=== PATIENT | female | born 1975 | race Two or more races ===

== ENCOUNTER 2022-03-10 23:44 | Emergency (ER) | payer SELFPAY ==
[~2022-03-10] VITALS: Ht 152.4 cm; Wt 63.5 kg
[2022-03-10 23:44] VITALS: BP 137/79
== END 2022-03-11 03:11 | disposition left against medical advice (07) ==
LOC: ER 23:44
DX: J02.9 Acute pharyngitis, unspecified (principal); Z53.21 Procedure and treatment not carried out due to patient leaving prior to being seen by health care provider

== ENCOUNTER 2022-08-10 14:04 | Emergency (ER) | payer MEDICAID, OTHER ==
[~2022-08-10] VITALS: Ht 149.9 cm; Wt 48.0 kg
[2022-08-10 15:09] VITALS: BP 113/65
[2022-08-10] MEDS ORDERED: NAPR500T31 PO (15:50)
== END 2022-08-10 15:58 | disposition home or self-care (01) ==
LOC: ER 14:04 → EDBD 14:04 → ER 15:58
DX: S16.1XXA Strain of muscle, fascia and tendon at neck level, initial encounter (principal); V43.52XA Car driver injured in collision with other type car in traffic accident, initial encounter; Y93.89 Activity, other specified; Y92.89 Other specified places as the place of occurrence of the external cause; Y99.8 Other external cause status
CPT/HCPCS: 72040

== ENCOUNTER 2023-07-17 18:21 | Emergency (ER) | payer MEDICAID, OTHER ==
[~2023-07-17] VITALS: Ht 149.9 cm; Wt 53.9 kg
[~2023-07-17 18:21] MED LIST: NAPR-746 PO
[2023-07-17] MEDS ORDERED: IBUP-1456 PO ×3 (23:24→23:27)
[2023-07-17] MEDS ORDERED: AMOX875T4 PO ×3 (23:24→23:27)
[2023-07-17] MEDS ORDERED: BENZOCAINE (DENTAL) 20 % SPRAY 60ML MT ONE (23:30)
[2023-07-17] MEDS ORDERED: cefTRIAXone SOD 1,000 MG VL IM ONE (23:30)
[2023-07-17] MEDS ORDERED: KETOROLAC TROMETH 60MG/2ML VIAL IM ONE (23:30)
[2023-07-17 23:40] VITALS: BP 130/70; PULSE 75; RESP 18; TEMP 97.8; O2SAT 98
== END 2023-07-17 23:46 | disposition home or self-care (01) ==
LOC: ER 18:21
DX: S02.5XXA Fracture of tooth (traumatic), initial encounter for closed fracture (principal); Z79.899 Other long term (current) drug therapy; X58.XXXA Exposure to other specified factors, initial encounter; Y93.89 Activity, other specified; Y92.89 Other specified places as the place of occurrence of the external cause; Y99.8 Other external cause status
CPT/HCPCS: 81025; 96372; 99284; J0696; J1885

== ENCOUNTER 2023-09-23 09:12 | Emergency (ER) | payer OTHER ==
[~2023-09-23] VITALS: Ht 149.9 cm; Wt 56.0 kg
[~2023-09-23 09:12] MED LIST changes: +AMOX875T4 PO; +IBUP-1456 PO
[2023-09-23 10:45] VITALS: BP 130/71; PULSE 96; RESP 18; TEMP 98.2; O2SAT 100
[2023-09-23] MEDS ORDERED: IBUPROFEN 800 MG TAB PO ONE (12:00)
[2023-09-23] MEDS ORDERED: ACETAMINOPHEN 500 MG TAB PO ONE (12:00)
[2023-09-23 12:20] LABS: Rapid Strep A Screen-Throat Negative
[2023-09-23] MEDS ORDERED: PENICILLIN G BENZ 1,200,000 UNITS/2 ML SYRG IM ONE (12:45)
[2023-09-23] MEDS ORDERED: PENI500T2 PO (13:03)
== END 2023-09-23 13:11 | disposition home or self-care (01) ==
LOC: ER 09:12
DX: J02.0 Streptococcal pharyngitis (principal)
CPT/HCPCS: 87070; 87880